=== PATIENT | male | born 1940 | race Caucasian/White ===

== ENCOUNTER 2019-10-13 11:18 | Emergency (ER) | payer MEDICARE, BC ==
[~2019-10-13] VITALS: Ht 170.2 cm; Wt 74.8 kg
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
--- NOTE | 2019-10-13 13:00 | NUR ---
PATIENT A/OX4, AMBULATORY WITH STEADY GAIT. DENIES PAIN AT THIS TIME. WILL CONTINUE TO MONITOR.
--- NOTE | 2019-10-13 13:36 | NUR ---
Patient discharged to home in stable condition. Written and verbal after care instructions given to patient and . Patient verbalizes understanding of instruction.
[2019-10-13 13:38] VITALS: BP 170/89
== END 2019-10-13 13:39 | disposition home or self-care (01) ==
LOC: ER 11:20
DX: S20.212A Contusion of left front wall of thorax, initial encounter (principal); S20.211A Contusion of right front wall of thorax, initial encounter; S80.212A Abrasion, left knee, initial encounter; I10 Essential (primary) hypertension; E66.9 Obesity, unspecified; Z68.25 Body mass index [BMI] 25.0-25.9, adult; Z95.0 Presence of cardiac pacemaker; V49.49XA Driver injured in collision with other motor vehicles in traffic accident, initial encounter; Y93.89 Activity, other specified; Y92.488 Other paved roadways as the place of occurrence of the external cause; Y99.8 Other external cause status
CPT/HCPCS: 71111-TC